=== PATIENT | female | born 1995 | race Caucasian/White ===

== ENCOUNTER 2016-06-12 22:46 | Emergency (ER) | payer BC, OTHER ==
[2016-06-12 22:57] VITALS: BMI 35.2
[2016-06-13] MEDS ORDERED: NS 1000 ML 1,000 ML IV ONE (01:30)
[2016-06-13] MEDS ORDERED: ZOFRAN INJ 4 MG VIAL IVP ONE (01:30)
--- NOTE | 2016-06-13 01:35 | DR.GENAD ---
HPI - PCP Primary Care Physician: NFD - Complaint/Symptoms Chief Complaint Doctors Comments: Patient complains of vomiting all day with RUQ pain and pain when she urinates. states she has been unable to keep food or liquids down today and she has been trying to drink liquids but they come back up. States he last period . She did a test at home recently and it was negative. she has been having dysuria, RUQ pain but denies hematuria or diarrhea. States she does not have a local doctor. Chief Complaint:: VOMITING AND STOMACH PAIN. PATIENT THINKS SHE MAY HAVE A UTI Self Treatment fo Chief Complaint: PEPTO - Nurses notes reviewed Nurses Notes Review: Yes - Source History Provided: Patient - Mode of Arrival Mode of Arrival: Ambulatory - Timing Onset of Chief Complaint: 06/12/16 Came on: Gradually - Duration Duration: Constant How lon Duration: Days - Location Location: RUQ pain - Severity Severity: Moderate - Modifying Factors Worsens:: nothing Improves:: nothing PMH - PMH Past Medical History: No Past Medical History: Headaches (migraine) Past Surgical History: Yes Surgical History: Cholecystectomy - Family History History of Family Medical Conditions: Yes Family Medical History: Diabetes Mellitus, [place], Hypertension - Social History Does patient currently use any type of tobacco product: No Have you used tobacco products in the last 12 months: No Type of Tobacco Use: None Does any household member use tobacco: No Alcohol Use: Occasionally Do you use any recreational Drugs:: No Lives With: Alone Lives Where: Home - infectious screening In the last 2 months have you had wt loss of >10#?: NO Have you had fever, night sweats or hemotysis?: No Have you traveled outside the country in the last 6 months?: No Isolation: Standard ROS - Review of Systems Constitutional: No Symptoms Reported, Loss of Appetite. negative: See HPI, Chills, Diaphoresis, Fever, Malaise, Weakness, Irritable, Fatigue, Other Eyes: No Symptoms Reported. negative: See HPI, Eye Pain, Blurred Vision, Tearing, Discharge, Photophobia, Diplopia, Other ENTM: No Symptoms Reported. negative: See HPI, Ear Pain, Ear Discharge, Pulling on Ears, Hearing Loss, Nose Pain, Nose Discharge, Epistaxis, Nose Congestion, Mouth Pain, Mouth Swelling, Loose Teeth, Drooling, Throat Pain, Throat Swelling, Ear Foreign Body Respiratoy: No Symptoms Reported Cardiovascular: No Symptoms Reported Gastrointestinal/Abdominal: No Symptoms Reported, Abdominal Pain, Nausea, Vomiting Genitourinary: No Symptoms Reported, Dysuria, Frequency, Pain. negative: See HPI, Discharge, Hematuria, Bleeding, Other Neurological: No Symptoms Reported Musculoskeletal: No Symptoms Reported Integumentary: No Symptoms Reported. negative: See HPI, Change in Color, Change in Hair/Nails, Dryness, Lesions, Lumps, Rash, Itching, Wound, Bruises, Juandice, Other Hematologic/Lymphatic: No Symptoms Reported Endocrine: No Symptoms Reported Psychiatric: No Symptoms Reported PE - Vital Signs Vitals: Temperature 98.4 F Pulse Rate 82 Respiratory Rate 24 Blood Pressure 129/84 O2 Sat by Pulse Oximetry 98 - General Limitations: No Limitations General Appearance: Alert, In Distress (moderate) - Head Head Exam: Normal Inspection, Atraumatic, Normocephalic - Eyes Eye exam: Normal Appearance, PERRL, EOMI. negative: Scleral Icterus, Conjunctival Injection, Nystagmus, Miosis, Mydrasis, Periorbital Swelling, Periorbital Tenderness, Other - ENT ENT Exam: Normal Exam, Normal Oropharynx, Normal External Ear Exam, Mucous Membranes Moist, TM's Normal Bilaterally External Ear Exam: Normal External Inspection TM/Canal Exam: Bilateral Normal Nose Exam: Normal Nose Exam Mouth Exam: Normal Inspection Throat Exam: Normal Inspection. negative: Tonsillar Erythema, Tonsillomegaly, Tonsillar Exudate, R Peritonsillar Mass, L Peritonsillar Mass, Muffled Voice, Other - Neck Neck Exam: Normal Inspection, Full ROM, Trachea Midline - Chest Chest Inspection: Normal Inspection, Symmetric Chest Wall Rise - Respiratory Respiratory Exam: Normal Lung Sounds Bilat Respiratory Exam: Bilateral Clear to Auscultation - Cardiovascular Cardiovascular Exam: Regular Rate, Normal Rhythm, Normal Heart Sounds. negative : Bradycardia, Tachycardia, Irregular Rhythm, Systolic Murmur, Diastolic Murmur , Rubs, Gallop, Clicks, JVD, +S1, +S2, +S3, +S4, Other - Abdominal Exam Abdominal Exam: Normal Inspection, Normal Bowel Sounds, Soft, Tenderness (RUQ), Dimnished Bowel Sounds Abdominal Tenderness: RUQ, Moderate - Extremities Extremities Exam: Normal Inspection, Full ROM, Normal Capillary Refill. negative: Tenderness, Edema, Joint Swelling, Calf Tenderness, Other - Back Back Exam: Normal Inspection, Full ROM - Neurologic Neurological Exam: Alert, Oriented X3, CN II-XII Intact, Normal Gait, Reflexes Normal - Psychiatric Psychiatric Exam: Normal Affect, Normal Mood. negative: Depressed, Agitated, Anxious, Flat Affect, Manic, Homicidal Ideation, Suicidal Ideation, Other - Skin Skin Exam: Warm, Dry, Intact, Normal Color. negative: Rash, Cyanosis, Diaphoresis, Erythema, Pallor, Mottled, Other ROR - Labs Reviewed Laboratory Results Reviewed?: Yes (all labs and x-ray results reviewed and discussed with patient) Result Diagrams: 06/13/16 01:40 06/13/16 01:40 Laboratory: WBC 16.2 X10^3/uL (3.6-10.0) H 06/13/16 01:40 RBC 5.19 X10^6/uL (3.5-5.4) 06/13/16 01:40 Hgb 14.4 g/dL (12.0-16.0) 06/13/16 01:40 Hct 43.2 % (36.0-47.0) 06/13/16 01:40 MCV 83.2 fL (80.0-100.0) 06/13/16 01:40 MCH 27.8 pg (27.0-34.0) 06/13/16 01:40 MCHC 33.4 g/dL (33.0-35.0) 06/13/16 01:40 RDW 13.3 % (11.6-16.5) 06/13/16 01:40 Plt Count 426 X10^3/uL (150.0-450.0) 06/13/16 01:40 MPV 8.5 fL (7.4-11.0) 06/13/16 01:40 Neut % 87.8 % (42.0-75.0) H 06/13/16 01:40 Lymph % 7.4 % (21.0-51.0) L 06/13/16 01:40 [place] % 4.4 % (0.0-13.0) 06/13/16 01:40 Eos % 0.1 % (0.9-2.9) L 06/13/16 01:40 Baso % 0.3 % (0.2-1.0) 06/13/16 01:40 Neut # 14.3 x10^3/uL (2.2-4.8) H 06/13/16 01:40 Lymph # 1.2 X10^3/uL (1.3-2.9) L 06/13/16 01:40 [place] # 0.7 x10^3/uL (0.3-0.8) 06/13/16 01:40 Eos # 0.0 x10^3/uL (0.0-0.2) 06/13/16 01:40 Baso # 0.1 X10^3/uL (0.0-0.1) 06/13/16 01:40 Absolute Nucleated RBC 0.1 /100WBC 06/13/16 01:40 Sodium 142 mmol/L (136-145) 06/13/16 01:40 Corrected Sodium 143 mmol/L (136-145) 06/13/16 01:40 Potassium 4.0 mmol/L (3.5-5.1) 06/13/16 01:40 Chloride 102 mmol/L (98-107) 06/13/16 01:40 Carbon Dioxide 30.0 mmol/L (21-32) 06/13/16 01:40 BUN 11 mg/dL (7-18) 06/13/16 01:40 Creatinine 0.90 mg/dL (0.55-1.02) 06/13/16 01:40 Est GFR (MDRD) Af Amer > 60 (>60) 06/13/16 01:40 Est GFR (MDRD) Non-Af > 60 (>60) 06/13/16 01:40 Glucose 132 mg/dL (65-99) H 06/13/16 01:40 Calcium 9.4 mg/dL (8.5-10.1) 06/13/16 01:40 Corrected Calcium TNP 06/13/16 01:40 Total Bilirubin 0.50 mg/dL (0.2-1.0) 06/13/16 01:40 AST 20 Units/L (15-37) 06/13/16 01:40 ALT 35 Units/L (12-78) 06/13/16 01:40 Alkaline Phosphatase 93 Units/L (46-116) 06/13/16 01:40 Total Protein 8.4 g/dL (6.4-8.2) H 06/13/16 01:40 Albumin 4.4 g/dL (3.4-5.0) 06/13/16 01:40 Globulin 4.0 g/dL (2.5-4.5) 06/13/16 01:40 Albumin/Globulin Ratio 1.1 Ratio (1.1-2.1) 06/13/16 01:40 Amylase 51 Units/L (25-115) 06/13/16 01:40 Lipase 111 Units/L (73-393) 06/13/16 01:40 HCG, Qual Negative <10 mIU/mL 06/13/16 01:40 Specimen Type Clean catch urine 06/13/16 01:41 Urine Color Yellow (YELLOW) 06/13/16 01:41 Urine Appearance Hazy (CLEAR) 06/13/16 01:41 Urine pH 6.5 (5.0 - 8.0) 06/13/16 01:41 Ur Specific [place] 1.015 (1.000-1.030) 06/13/16 01:41 Urine Protein 3+ (NEGATIVE) 06/13/16 01:41 Urine Glucose (UA) Negative (NEGATIVE) 06/13/16 01:41 Urine Ketones 2+ (NEGATIVE) 06/13/16 01:41 Urine Occult Blood 4+ (NEGATIVE) 06/13/16 01:41 Urine Nitrite Negative (NEGATIVE) 06/13/16 01:41 Urine Bilirubin Negative (NEGATIVE) 06/13/16 01:41 Urine Urobilinogen 1+ (NORMAL) 06/13/16 01:41 Ur Leukocyte Esterase 3+ (NEGATIVE) 06/13/16 01:41 Urine RBC 10-15 /HPF (NEGATIVE) 06/13/16 01:41 Urine WBC Tntc /HPF (NEGATIVE) 06/13/16 01:41 Ur Squamous Epith Cells Moderate /HPF (NEGATIVE) 06/13/16 01:41 Urine Bacteria 1+ /HPF (NEGATIVE) 06/13/16 01:41 Urine Mucus Few /HPF (NEGATIVE) 06/13/16 01:41 Ur Culture Indicated? Yes/culture set up 06/13/16 01:41 - XRAY XRAY Interpreted by: Radiologist (CT abdomen/pelvis: No acute inflammatory process within the abdomen and pelvis) - Diagnosis Discharge Problem: Hyperglycemia, Folliculitis Abdominal pain Qualifiers: Abdominal location: right upper quadrant Qualified Code(s): R10.11 - Right upper quadrant pain Urinary tract infection Qualifiers: Urinary tract infection type: site unspecified - Discharge Plan Disposition: ADMITTED INPATIENT Condition: Stable Prescriptions: Ibuprofen [MOTRIN TAB 800 MG *] 800 mg PO BID PRN #60 tab PRN Reason: Pain/Inflammation Levofloxacin [LEVAQUIN TAB 500 MG *] 500 mg PO Q24H #7 tab Ondansetron [Zofran Odt] 4 mg PO Q8H PRN #12 tab PRN Reason: Nausea/Vomiting - Follow ups/Referrals Follow ups/Referrals: NFD,None [Primary Care Provider] - 3 days - Instructions Instructions: Urinary Tract Infection, Abdominal Pain, Adult, [id number], Hyperglycemia
[2016-06-13 01:54] LABS: BASOPHILS # (AUTO) 0.1 X10^3/uL (0.0-0.1); BASOPHILS % (AUTO) 0.3 % (0.2-1.0); EOSINOPHILS % (AUTO) 0.1 % (0.9-2.9); HEMATOCRIT 43.2 % (36.0-47.0); HEMOGLOBIN 14.4 g/dL (12.0-16.0); LYMPHOCYTES # (AUTO) 1.2 X10^3/uL (1.3-2.9); LYMPHOCYTES % (AUTO) 7.4 % (21.0-51.0); MEAN CORPUSCULAR HEMOGLOBIN 27.8 pg (27.0-34.0); MEAN CORPUSCULAR HGB CONC 33.4 g/dL (33.0-35.0); MEAN CORPUSCULAR VOLUME 83.2 fL (80.0-100.0); MEAN PLATELET VOLUME 8.5 fL (7.4-11.0); MONOCYTES # (AUTO) 0.7 x10^3/uL (0.3-0.8); MONOCYTES % (AUTO) 4.4 % (0.0-13.0); NEUTROPHILS # (AUTO) 14.3 x10^3/uL (2.2-4.8); NEUTROPHILS % (AUTO) 87.8 % (42.0-75.0); PLATELET COUNT 426 X10^3/uL (150.0-450.0); RED BLOOD COUNT 5.19 X10^6/uL (3.5-5.4); RED CELL DISTRIBUTION WIDTH 13.3 % (11.6-16.5); WHITE BLOOD COUNT 16.2 X10^3/uL (3.6-10.0)
[2016-06-13 02:00] LABS: BILIRUBIN,URINE NEGATIVE (NEGATIVE); BLOOD/HEMOGLOBIN,URINE 4+ (NEGATIVE); GLUCOSE, URINE NEGATIVE (NEGATIVE); KETONES,URINE 2+ (NEGATIVE); LEUKOCYTE ESTERASE ,URINE 3+ (NEGATIVE); NITRITES,URINE NEGATIVE (NEGATIVE); PH,URINE 6.5 (5.0 - 8.0); PROTEIN,URINE 3+ (NEGATIVE); UROBILINOGEN,URINE 1+ (NORMAL)
[2016-06-13 02:01] LABS: ALANINE AMINOTRANSFERASE 35 Units/L (12-78); ALBUMIN 4.4 g/dL (3.4-5.0); ALKALINE PHOSPHATASE 93 Units/L (46-116); AMYLASE 51 Units/L (25-115); ASPARTATE AMINO TRANSFERASE 20 Units/L (15-37); BLOOD UREA NITROGEN 11 mg/dL (7-18); CALCIUM 9.4 mg/dL (8.5-10.1); CHLORIDE 102 mmol/L (98-107); COR NA(FOR HYPERGLY) 143 mmol/L (136-145); GLUCOSE 132 mg/dL (65-99); LIPASE 111 Units/L (73-393); SODIUM 142 mmol/L (136-145); TOTAL PROTEIN 8.4 g/dL (6.4-8.2); eGFR BLACK RACES > 60 (>60); eGFR NON BLACK RACES > 60 (>60)
[2016-06-13 02:02] LABS: SERUM PREGNANCY TEST, QUAL NEGATIVE <10 mIU/mL
[2016-06-13 02:11] LABS: APPEARANCE,URINE HAZY (CLEAR); COLOR,URINE YELLOW (YELLOW); SQUAMOUS EPITHELIAL CELL,UR MODERATE /HPF (NEGATIVE)
[2016-06-13 02:12] LABS: BACTERIA,URINE 1+ /HPF (NEGATIVE); MUCUS,URINE FEW /HPF (NEGATIVE)
[2016-06-13] MEDS ORDERED: NS 1000 ML 1,000 ML ONE (02:18)
[2016-06-13] MEDS ORDERED: ZOFRAN INJ 4 MG VIAL ONE (02:18)
[2016-06-13] MEDS ORDERED: TORADOL 30 MG VIAL IVP STA (02:47)
--- NOTE | 2016-06-13 03:22 | CT ---
CT abdomen and pelvis without contrast Indication: Right-sided abdominal pain Comparison: None available Technique: Multiple axial images of the abdomen and pelvis were obtained from the lung bases to the pubic symph ysis without the administration of IV contrast. Coronal and sagittal images were also provided. Radiation dose reduction techniques were performed utilizing adjustment for MA/kVP based on patient body size. Findings: The visualized portions of the lung bases are unremarkable. The bony structures are grossly intact. Given the limitations of lack of IV contrast administration the liver, spleen, pancreas, and adrenal glands are unremarkable in their CT appearance. Previous cholecystectomy is noted. No evidence of stone within either kidney or ureter. No hydronephrosis is identified. No bowel wall thickening or bowel dilatation is present. The colon and rectum are unremarkable. Th e urinary bladder is grossly unremarkable. The appendix is normal. There is a very small fat contain ing periumbilical hernia. No pelvic or adnexal mass identified, there are likely bilateral small adn exal cyst. No mesenteric lymphadenopathy or stranding can be observed. No free fluid or free air is seen withi n the abdomen. IMPRESSION: 1. No acute inflammatory process within the abdomen or pelvis given the limitations of a noncontras t examination. Reported By:
[2016-06-13] MEDS ORDERED: LEVAQUIN TAB 500 MG PO STA (03:29)
[2016-06-13] MEDS ORDERED: ROCEPHIN VIAL 1 GM 1 GM in NS 50 ML IV + SPIKE MINIBAG* 50 ML IV ONE (03:29)
[2016-06-13] MEDS ORDERED: TORADOL 30 MG VIAL ONE (03:48)
[2016-06-13] MEDS ORDERED: NS 50 ML IV + SPIKE MINIBAG* 50 ML IV ONE (03:49)
[2016-06-13] MEDS ORDERED: ROCEPHIN VIAL 1 GM ONE (03:49)
[2016-06-13] MEDS ORDERED: LEVAQUIN TAB 500 MG ONE (03:49)
[2016-06-13 05:15] VITALS: BP 115/68
== END 2016-06-13 04:23 | disposition home or self-care (01) ==
LOC: ER 22:46
DX: R73.9 Hyperglycemia, unspecified (principal); L73.8 Other specified follicular disorders; R10.11 Right upper quadrant pain
CPT/HCPCS: 36415; 74176; 80053; 81001; 82150; 83690; 84703; 85025; 87086; 96365; 96374; 96375; 99283; A4216; A4222; J0696; J1885; J2405